=== PATIENT | male | born 1970 | race Caucasian/White ===

== ENCOUNTER 2017-06-19 14:55 | Emergency (ER) | payer MEDICAID ==
[2017-06-19 16:27] LABS: BASOPHIL % 0.4 % (0-2); PLATELET COUNT 146 x10^3mcL (130-400); RED CELL DISTRIBUTION WIDTH 15.8 % (11.5-14.5)
[2017-06-19 16:48] LABS: CALCIUM 9.6 mg/dL (8.5-10.1); CARBON DIOXIDE 32.2 mmol/L (21-32); CHLORIDE SERUM 94 mmol/L (98-107); CREATININE SERUM 0.5 mg/dL (0.7-1.3); GFR1 > 60 mL/min; GLUCOSE SERUM 112 mg/dL (74-106); POTASSIUM SERUM 4.5 mmol/L (3.5-5.1); SODIUM SERUM 136 mmol/L (136-145)
[2017-06-19 16:53] LABS: ALKALINE PHOSPHATASE 91 U/L (46-116); ALT/SGPT 12 U/L (16-63); AST/SGOT 13 U/L (15-37); BILIRUBIN TOTAL 0.4 mg/dL (0.20-1.00); TOTAL PROTEIN, SERUM 7.3 g/dL (6.4-8.2)
[2017-06-19 16:59] LABS: ALBUMIN 2.8 g/dL (3.4-5.0)
[2017-06-19 18:33] VITALS: BP 116/69
== END 2017-06-19 18:34 | disposition home or self-care (01) ==
LOC: ED 14:55
PROVIDERS: Emergency Medicine
DX: L03.115 Cellulitis of right lower limb (principal); D64.9 Anemia, unspecified
CPT/HCPCS: 83880; J0696; J2270; J2405; J7040; Q0092

== ENCOUNTER 2017-06-22 07:41 | Emergency (ER) | payer MEDICAID ==
[2017-06-22 07:46] VITALS: BP 121/51
== END 2017-06-22 08:37 | disposition home or self-care (01) ==
LOC: ED 07:41
DX: H10.32 Unspecified acute conjunctivitis, left eye (principal); L97.519 Non-pressure chronic ulcer of other part of right foot with unspecified severity; Z79.899 Other long term (current) drug therapy

== ENCOUNTER 2017-06-26 23:31 | Inpatient (IN) | payer MEDICAID ==
[~2017-06-26] VITALS: Ht 170.2 cm; Wt 56.2 kg
[2017-06-27 00:33] LABS: BASOPHIL % 0.4 % (0-2); PLATELET COUNT 183 x10^3mcL (130-400)
[2017-06-27 00:37] LABS: RED CELL DISTRIBUTION WIDTH 15.4 % (11.5-14.5)
[2017-06-27 00:38] LABS: CALCIUM 9.2 mg/dL (8.5-10.1); CARBON DIOXIDE 30.1 mmol/L (21-32); CHLORIDE SERUM 98 mmol/L (98-107); CREATININE SERUM 0.6 mg/dL (0.7-1.3); GFR1 > 60 mL/min; GLUCOSE SERUM 114 mg/dL (74-106); POTASSIUM SERUM 4.3 mmol/L (3.5-5.1); SODIUM SERUM 131 mmol/L (136-145)
[2017-06-27 00:43] LABS: microscopic required? NO
[2017-06-27 00:47] LABS: T3 TOTAL 1.23 ng/mL
[2017-06-27 00:52] LABS: ALKALINE PHOSPHATASE 91 U/L (46-116); ALT/SGPT 13 U/L (16-63); AST/SGOT 17 U/L (15-37); BILIRUBIN TOTAL 0.2 mg/dL (0.20-1.00); C REACTIVE PROTEIN 1.1 mg/dL (<=0.9)
[2017-06-27 00:53] LABS: ALBUMIN 2.8 g/dL (3.4-5.0)
[2017-06-27 00:58] LABS: CK-MB 3.7 ng/mL (0-3.6); FREE THYROXINE INDEX 4.3 ug/dL (1.4-4.5); T4(THYROXINE) 11.9 ug/dL (4.7-13.3)
[2017-06-27 01:04] LABS: FREE T4 1.53 ng/dL (0.76-1.46)
[2017-06-27 02:00] LABS: UA SPECIFIC GRAVITY 1.015 (1.005-1.035); urine erythrocyte NEGATIVE (NEGATIVE)
[2017-06-27 02:02] LABS: ERYTHROCYTE SED RATE 19 mm/hr (0-15)
[2017-06-27] MEDS ORDERED: LAXATIVE5 M1 PO ×2 (03:29→03:34)
[2017-06-27] MEDS ORDERED: Q-PAP325 MG PO (03:30)
[2017-06-27] MEDS ORDERED: BACLOFEN10 MG PO (03:32)
[2017-06-27] MEDS ORDERED: SYSTANE ULTRA1 EACH OP (03:33)
[2017-06-27] MEDS ORDERED: CALCIUM/VITAMIN1 TA2 PO (03:33)
[2017-06-27] MEDS ORDERED: RISPERIDONE1 MG PO ×2 (03:35→10:40)
[2017-06-27] MEDS ORDERED: GAVILAX17 GM/Dose PO (03:35)
[2017-06-27] MEDS ORDERED: BENZTROPINE ME0.5 MG PO (03:35)
[2017-06-27 04:38] LABS: MAGNESIUM 1.7 mg/dL (1.8-2.4); PHOSPHOROUS 3.3 mg/dL (2.5-4.9)
[2017-06-27 04:50] LABS: CHOLESTEROL/HDL RATIO 1.6
[2017-06-27 05:27] VITALS: BP 97/68
[2017-06-27 10:19] VITALS: BP 83/50
[2017-06-27] MEDS ORDERED: DIVALPROEX SOD125 MG PO (10:48)
[2017-06-27] MEDS ORDERED: POLYMYXIN B/TRI10 ML OP (11:01)
[2017-06-27 12:10] VITALS: BP 101/58
[2017-06-27 14:30] VITALS: BP 98/56
[2017-06-27 18:43] VITALS: BP 94/55
[2017-06-27 21:02] VITALS: BP 106/55
[2017-06-28 05:40] VITALS: BP 87/53
[2017-06-28 06:13] LABS: BASOPHIL % 0.4 % (0-2); PLATELET COUNT 133 x10^3mcL (130-400)
[2017-06-28 06:29] LABS: CALCIUM 8.5 mg/dL (8.5-10.1); CARBON DIOXIDE 27.3 mmol/L (21-32); CHLORIDE SERUM 103 mmol/L (98-107); CREATININE SERUM 0.6 mg/dL (0.7-1.3); GFR1 > 60 mL/min; GLUCOSE SERUM 89 mg/dL (74-106); MAGNESIUM 1.9 mg/dL (1.8-2.4); POTASSIUM SERUM 4.7 mmol/L (3.5-5.1); SODIUM SERUM 137 mmol/L (136-145)
[2017-06-28 06:45] LABS: RED CELL DISTRIBUTION WIDTH 16.2 % (11.5-14.5)
[2017-06-28 09:05] VITALS: BP 93/47
[2017-06-28 12:59] VITALS: BP 98/63
[2017-06-28 16:38] VITALS: BP 97/57
[2017-06-28 20:57] VITALS: BP 104/62
[2017-06-29 05:21] VITALS: BP 165/73; BP 95/54
[2017-06-29 06:24] LABS: CALCIUM 8.7 mg/dL (8.5-10.1); CARBON DIOXIDE 32.2 mmol/L (21-32); CHLORIDE SERUM 103 mmol/L (98-107); CREATININE SERUM 0.5 mg/dL (0.7-1.3); GFR1 > 60 mL/min; GLUCOSE SERUM 92 mg/dL (74-106); POTASSIUM SERUM 4.6 mmol/L (3.5-5.1); SODIUM SERUM 138 mmol/L (136-145)
[2017-06-29 06:42] LABS: BASOPHIL % 0.2 % (0-2); PLATELET COUNT 136 x10^3mcL (130-400)
[2017-06-29 06:54] LABS: RED CELL DISTRIBUTION WIDTH 15.4 % (11.5-14.5)
[2017-06-29 13:24] VITALS: BP 90/53
[2017-06-29 17:06] VITALS: BP 94/55
[2017-06-29 21:34] VITALS: BP 107/67
[2017-06-30 06:12] VITALS: BP 84/53
[2017-06-30 07:36] LABS: CALCIUM 8.7 mg/dL (8.5-10.1); CARBON DIOXIDE 33.8 mmol/L (21-32); CHLORIDE SERUM 105 mmol/L (98-107); CREATININE SERUM 0.5 mg/dL (0.7-1.3); GFR1 > 60 mL/min; GLUCOSE SERUM 87 mg/dL (74-106); SODIUM SERUM 140 mmol/L (136-145)
[2017-06-30 07:43] LABS: PLATELET COUNT 142 x10^3mcL (130-400)
[2017-06-30 07:50] LABS: RED CELL DISTRIBUTION WIDTH 16.1 % (11.5-14.5)
[2017-06-30] MEDS ORDERED: LAC30L PO (10:19)
[2017-06-30] MEDS ORDERED: STOOL SOFTENER100 MG PO (10:22)
[2017-06-30] MEDS ORDERED: METP PO (10:26)
[2017-06-30 10:32] VITALS: BP 94/60
[2017-06-30 11:15] VITALS: BP 94/60
[2017-06-30 13:35] LABS: ATYPICAL LYMPH 1 %; BAND NEUTROPHIL 0 % (0-10); BASOPHIL 1 % (0-2); MONOCYTE 12 % (0-7); PLATELET MORPHOLOGY PLATELETS DECREASED; SEGMENTED NEUTROPHILS 69 % (37-75); rbc morphology (normal/abnorm) ABNORMAL (NORMAL)
== END 2017-06-30 14:25 | DRG 247 ==
LOC: ED 23:31 → DU 06-27 03:25 → MU 06-30 06:47
PROVIDERS: Family Medicine; Specialist; ADMIT Family Medicine
DX: K56.41 Fecal impaction (principal); E43 Unspecified severe protein-calorie malnutrition; G82.50 Quadriplegia, unspecified; F73 Profound intellectual disabilities; E83.42 Hypomagnesemia; E87.1 Hypo-osmolality and hyponatremia; H54.0 Blindness, both eyes; K21.9 Gastro-esophageal reflux disease without esophagitis; H10.9 Unspecified conjunctivitis; G40.909 Epilepsy, unspecified, not intractable, without status epilepticus; F63.81 Intermittent explosive disorder; Z68.1 Body mass index [BMI] 19.9 or less, adult; Z87.820 Personal history of traumatic brain injury
CPT/HCPCS: 36600; 83880; 84439; C9113; J0694; J1885; J1956; J2405; J3010; J3490; J7030; Q0092; Q9966